=== PATIENT | male | born 1980 | race Caucasian/White ===

== ENCOUNTER 2016-12-16 11:33 | Emergency (ER) | payer OTHER ==
[2016-12-16 11:40] VITALS: BP 148/92; PULSE 85; TEMP 98; BMI 43.8
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
[2016-12-16] MEDS ORDERED: KETOROLAC TROMETHAMINE 60 MG/2 ML VIAL IM ONE (12:19)
[2016-12-16] MEDS ORDERED: KETOROLAC TROMETHAMINE 60 MG/2 ML VIAL ONE (12:25)
== END 2016-12-16 12:53 | disposition home or self-care (01) ==
LOC: JERFT 11:33
PROC: 3E0233Z Introduction of Anti-inflammatory into Muscle, Percutaneous Approach (ICD-10-PCS; principal; 2016-12-16)
DX: S39.012A Strain of muscle, fascia and tendon of lower back, initial encounter (principal); V43.52XA Car driver injured in collision with other type car in traffic accident, initial encounter; Y92.488 Other paved roadways as the place of occurrence of the external cause; Y93.89 Activity, other specified; Y99.8 Other external cause status
CPT/HCPCS: 99281-25

== ENCOUNTER 2019-11-05 11:10 | Emergency (ER) | payer OTHER ==
[2019-11-05] MEDS ORDERED: ASPIRIN 81 MG CHEWABLE TABLETS PO ONE (11:18)
--- NOTE | 2019-11-05 11:20 | PDOC ---
Rapid Medical Evaluation Chief Complaint: Chest Pain Time Seen by Provider: 11/05/19 11:18 Medical Evaluation: Allergies Allergy/AdvReac Type Severity Reaction Status Date / Time No Known Allergies Allergy Verified 10/10/17 22:16 11/05/19 11:19 HPI: 39 y/o M w/CP x3 days PE: No gross deficits ORDERS: LABS, EKG, CXR Discharge Disposition - Diagnosis Chest pain - Referrals - Patient Instructions - Post Discharge Activity
[2019-11-05 11:21] VITALS: BMI 43.8
[2019-11-05] MEDS ORDERED: ASPIRIN 81 MG CHEWABLE TABLETS ONE (12:04)
[2019-11-05] MEDS ORDERED: FAMOTIDINE 20 MG/50 ML IVPB 20 MG/50 ML MG IVPB ONE (12:15)
[2019-11-05 12:22] LABS: BASO % 0.5 % (0-2.0); EOS % 3.9 % (0-4.5); HEMATOCRIT 43.7 % (35.4-49); HEMOGLOBIN 14.6 GM/dL (11.7-16.9); LYMPH % 23.7 % (8-40); MCHC 33.3 g/dl (32.0-35.9); MEAN PLT VOLUME 9.5 fl (7.5-11.1); MONO % 8.6 % (3.8-10.2); NEUT % 63.3 % (42.8-82.8); PLATELET COUNT 259 K/MM3 (134-434); RDW 15.3 % (11.9-15.9); WHITE BLOOD COUNT 8.9 K/mm3 (4.0-10.0)
[2019-11-05 12:28] LABS: INR 1.07 (0.83-1.09); PROTHROMBIN TIME (PATIENT) 12.6 SEC (9.7-13.0)
[2019-11-05 12:31] LABS: ACTIVATED PTT 35.7 SECONDS (25.2-36.5)
--- NOTE | 2019-11-05 13:00 | EKG ---
Test Reason : Blood Pressure : / mmHG Vent. Rate : 083 BPM Atrial Rate : 083 BPM P-R Int : 176 ms QRS Dur : 090 ms QT Int : 374 ms P-R-T Axes : 058 036 049 degrees QTc Int : 439 ms NORMAL SINUS RHYTHM POSSIBLE LEFT ATRIAL ENLARGEMENT BORDERLINE ECG NO PREVIOUS ECGS AVAILABLE Confirmed by MD CARSON, INÉS ([id number]) on 11/05/2019 1:00:01 PM Referred By: Confirmed By:INÉS BYRD MD
[2019-11-05 13:06] LABS: ALBUMIN 3.8 g/dl (3.4-5.0); ALK PHOS 81 U/L (45-117); ANION GAP 9 MMOL/L (8-16); BILIRUBIN,TOTAL 0.4 mg/dL (0.2-1); BLOOD UREA NITROGEN 11.8 mg/dL (7-18); CALCIUM 9.4 mg/dL (8.5-10.1); CHLORIDE 106 mmol/L (98-107); CO2 25 mmol/L (21-32); CREATININE 0.9 mg/dL (0.55-1.3); GLUCOSE,RANDOM 99 mg/dL (74-106); MAGNESIUM 2.5 mg/dL (1.8-2.4); POTASSIUM 4.6 mmol/L (3.5-5.1); SGOT/AST 22 U/L (15-37); SGPT/ALT 35 U/L (13-61); SODIUM 139 mmol/L (136-145); TOT PROT 8.3 g/dl (6.4-8.2)
--- NOTE | 2019-11-05 17:00 | PDOC ---
Documentation entered by Sophie Penn SCRIBE, acting as scribe for Bassam Gupta MD. Bassam Gupta MD: This documentation has been prepared by the Fili forte Brenda, SCRIBE, under my direction and personally reviewed by me in its entirety. I confirm that the documentation accurately reflects all work, treatment, procedures, and medical decision making performed by me. History of Present Illness - General Chief Complaint: Chest Pain Stated Complaint: CHEST PAIN Time Seen by Provider: 11/05/19 11:18 History Source: Patient Exam Limitations: No Limitations - History of Present Illness Initial Comments: 11/05/19 12:11 The patient is a year old male with a significant PMH of who presents to the emergency department for evaluation of chest pain for 4 days. Patient notes that he has been having episodes of "pinching" under his left shoulder, which he describes as heart pinching which then progresses into a RUQ protuberance, which he describes as "blowing up like a hernia/balloon". Patient also endorses nausea and headaches which is resolved with tylenol. The patient denies shortness of breath, and dizziness. Denies fever, chills, vomiting, diarrhea and constipation. Denies dysuria, frequency, urgency and hematuria. Allergies: NKA Past surgical history: Appendectomy Social history: No reported hx of tobacco use, alcohol use or illicit drug use. 11/05/19 16:55 Past History - Medical History Allergies/Adverse Reactions: Allergies Allergy/AdvReac Type Severity Reaction Status Date / Time No Known Allergies Allergy Verified 11/05/19 11:21 Home Medications: Ambulatory Orders NK [No Known Home Medication] 11/05/19 COPD: No - Surgical History Appendectomy: Yes - Psycho-Social/Smoking History Smoking History: Never smoked Have you smoked in the past 12 months: No Information on smoking cessation initiated: No - Substance Abuse Hx (Audit-C & DAST Scrn) How often the patient has a drink containing alcohol: Monthly or less Number of drinks the patient has on a typical day: 3 or 4 How often the patient has six or more drinks on one occasion: Never Score: In Men: 4 or > Positive; In Women: 3 or > Positive: 2 Screen Result (Pos requires Nsg. Audit-10AR): Negative In the last yr the pt used illegal drug/Rx for NonMed reason: Yes Score: Yes response is considered Positive: 1 Screen Result (Positive result requires Nsg. DAST-10): Positive Review of Systems - Review of Systems Able to Perform ROS?: Yes Comments:: 11/05/19 12:12 CONSTITUTIONAL: (+) Diaphoresis. No fever, no fatigue EYES: No visual changes ENT: No ear pain, no sore throat CARDIOVASCULAR: (+) chest pain, no palpitations RESPIRATORY: No cough, no SOB GI: (+) Abdominal pain. (+) Nausea. No vomiting, no constipation, no diarrhea GENITOURINARY: No dysuria, no frequency, no hematuria MUSKULOSKELETAL: No backpain. SKIN: No rash NEURO: (+) headache *Physical Exam - Vital Signs Last Vital Signs Temp Pulse Resp BP Pulse Ox 99.3 F 92 H 24 H 146/106 H 100 11/05/19 11:18 11/05/19 11:18 11/05/19 11:18 11/05/19 11:18 11/05/19 11:18 - Physical Exam 11/05/19 12:11 CONSTITUTIONAL: Well-appearing; well-nourished; in no apparent distress; initialy hypertensive HEAD: Normocephalic; atraumatic EYES: PERRL; EOM intact ENMT: External appears normal; normal oropharynx NECK: Supple; non-tender; no cervical lymphadenopathy CARD: Normal S1, S2; no murmurs, rubs, or gallops RESP: Normal chest excursion with respiration; breath sounds clear and equal bilaterally; no wheezes, rhonchi, or rales; + left chest wall ttp reproducing the pts sxs ABD: (+) RUQ tenderness to palpation(ventral hernia, easily reducable). Soft, non-distended; no palpable organomegaly, no palpable hernias EXT: Normal ROM in all four extremities; non-tender to palpation; distal pulses intact SKIN: Warm, dry, no rash NEURO: No focal neurological deficiencies. Heart Score/ECG Review - History History: Slightly suspicious - Electrocardiogram EKG: Normal - Age Age: </= 45 - Risk Factors Risk Factors Heart Score: Yes Hx Hypertension Based on the list above the patient has:: 1-2 risk factors - Troponin Troponin: </= normal limit - Score Heart Score - Total: 1 - ECG Impressions Comment:: 11/05/19 13:31 Rate 83 bpm Normal sinus rhythm Possible left atrial enlargement Borderline ECG ED Treatment Course - LABORATORY CBC & Chemistry Diagram: 11/05/19 11:45 11/05/19 11:45 Medical Decision Making - Medical Decision Making 11/05/19 16:57 Patient is an obese 39-year-old male who presents with atypical chest discomfort that originates after developing right sided ventral hernia and has reproducible left-sided anterior chest and breast tenderness on palpation consistent with his previous symptoms. EKG shows no evidence of acute ischemia or dysrhythmia. Chest x-ray reveals no evidence of cardiomegaly/infiltrate or effusion. Right upper quadrant ultrasound reveals a contracted gallbladder, mildly enlarged liver and normal kidney. Patient's heart score is noted to be 1. I do not suspect ACS or PE at this time. Will obtain serial cardiac enzymes and if negative, will discharge with outpatient follow-up. We will also refer to surgery for elective hernia repair. 11/05/19 17:22 pts bp imporved w/o intervention. serial cardiac enzymes are wnl. acs/pe is highly unlikley. will d/c. 11/05/19 17:25 Discharge - Discharge Information Problems reviewed: Yes Clinical Impression/Diagnosis: Hernia Chest pain Qualifiers: Chest pain type: unspecified Qualified Code(s): R07.9 - Chest pain, unspecified Condition: Stable Disposition: HOME - Follow up/Referral Referrals: Joseph Fontenot [Primary Care Provider] - Hansel Valdivia MD [Staff Physician] - - Patient Discharge Instructions Patient Printed Discharge Instructions: DI for Atypical Chest Pain - Post Discharge Activity
[2019-11-05 17:04] VITALS: BP 126/90; PULSE 91; TEMP 98.2
== END 2019-11-05 17:36 | disposition home or self-care (01) ==
LOC: JER 11:10
PROC: 3E033GC Introduction of Other Therapeutic Substance into Peripheral Vein, Percutaneous Approach (ICD-10-PCS; principal; 2019-11-05)
DX: R07.9 Chest pain, unspecified (principal); K46.9 Unspecified abdominal hernia without obstruction or gangrene
CPT/HCPCS: 36415; 71046-TC-FY; 76705-TC; 80053; 82550; 82553; 83735; 84484; 85025; 85610; 85730; 93005; 93010; 99285-25